=== PATIENT | male | born 1990 | race Caucasian/White ===

== ENCOUNTER 2017-07-18 20:52 | Emergency (ER) | payer BC ==
[~2017-07-18] VITALS: Ht 162.6 cm; Wt 82.5 kg
[2017-07-18 20:58] VITALS: Ht 162.6 cm; Wt 82.5 kg
[2017-07-18 21:50] VITALS: BP 142/83
== END 2017-07-18 21:50 | disposition home or self-care (01) ==
LOC: ED 20:52
DX: B34.9 Viral infection, unspecified (principal)

== ENCOUNTER 2017-07-22 03:33 | Emergency (ER) | payer BC ==
[~2017-07-22] VITALS: Ht 170.2 cm; Wt 83.0 kg
[2017-07-22 03:43] VITALS: Ht 170.2 cm; Wt 83.0 kg
[2017-07-22 05:20] VITALS: BP 120/86
== END 2017-07-22 05:20 | disposition home or self-care (01) ==
LOC: ED 03:33
DX: R10.13 Epigastric pain (principal); R11.0 Nausea
CPT/HCPCS: J1885